=== PATIENT | female | born 1935 | race Caucasian/White ===

== ENCOUNTER 2021-12-05 08:25 | Observation (INO) ==
[2021-12-05 09:37] LABS: Basophils % 0.6 %; Eosinophils # 0.1 K/mcL (0.0-0.6); Eosinophils % 1.8 %; Hematocrit 26.9 % (35.3-44.9); Hemoglobin 7.9 g/dL (11.5-15.4); Immature Granulocytes % 0.8 % (0-4); Lymphocytes # 1.5 K/mcL (0.6-4.6); Lymphocytes % 20.4 %; Mean Corpuscular HGB Conc 29.4 g/dL (31.6-35.5); Mean Corpuscular Hemoglobin 30.9 pg (28.0-33.3); Mean Corpuscular Volume 105.1 fL (83.0-100.0); Mean Platelet Volume 9.9 fL (9.4-12.4); Monocytes # 0.7 K/mcL (0.0-1.3); Monocytes % 10.1 %; Neutrophils # 4.8 K/mcL (1.6-8.9); Platelet Count 304 K/mcL (140-400); Red Blood Count 2.56 M/mcL (3.82-4.97); Red Cell Distribution Width 18.9 % (11.5-14.5); Segmented Neutrophils % 66.3 %; White Blood Count 7.2 K/mcL (4.3-11.1)
[2021-12-05 09:57] LABS: BUN/Creatinine Ratio 16 (6-26); Blood Urea Nitrogen 13 mg/dL (8-23); Calcium 9.1 mg/dL (8.6-10.3); Carbon Dioxide 28 mEq/L (23-29); Chloride 103 mEq/L (98-107); Glucose 97 mg/dL (70-105); Osmolality,Calculated 288 (280-300); Potassium 3.9 mEq/L (3.5-5.1); Sodium 139 mEq/L (136-145); Troponin I < 0.03 ng/mL (< 0.04)
[2021-12-05] MEDS ORDERED: Pantoprazole 40 MG VIAL IVP ONE (10:09)
[2021-12-05] MEDS ORDERED: Naloxone 0.4 MG/ML INJ IVP PRN (10:33)
[2021-12-05] MEDS ORDERED: MOM Conc 10 ML UD.LIQ PO PRN (10:33)
[2021-12-05] MEDS ORDERED: Ondansetron 4 MG/2 ML VIAL IVP PRN (10:33)
[2021-12-05] MEDS ORDERED: Mag Hydrox/Al Hydrox/Simeth 30 ML UDC PO PRN (10:33)
[2021-12-05] MEDS ORDERED: Acetaminophen 325 MG TABLET PO PRN (10:33)
[2021-12-05] MEDS: 0.9 % Sodium Chloride 1,000 ML IVC SCH (12:35)
[2021-12-05 15:54] LABS: % Iron Saturation 5 % (15-50); Iron 23 mcg/dL (50-170); Transferrin 322 mg/dL (203-362)
[2021-12-05 16:09] LABS: Ferritin 35 ng/mL (10-120)
[2021-12-05] MEDS: Pantoprazole 40 MG VIAL IVP SCH (16:51)
[2021-12-05 17:09] LABS: Folate 12.8 ng/mL (3.0-16.0)
[2021-12-05 21:15] LABS: Hematocrit 24.4 % (35.3-44.9); Hemoglobin 7.2 g/dL (11.5-15.4)
[2021-12-05 21:24] LABS: Hematocrit 25.6 % (35.3-44.9); Hemoglobin 7.5 g/dL (11.5-15.4)
[2021-12-06 02:54] LABS: Hematocrit 23.8 % (35.3-44.9); Mean Corpuscular HGB Conc 29.4 g/dL (31.6-35.5); Mean Corpuscular Hemoglobin 31.4 pg (28.0-33.3); Mean Corpuscular Volume 106.7 fL (83.0-100.0); Mean Platelet Volume 9.6 fL (9.4-12.4); Platelet Count 243 K/mcL (140-400); Red Blood Count 2.23 M/mcL (3.82-4.97); Red Cell Distribution Width 18.6 % (11.5-14.5); White Blood Count 7.4 K/mcL (4.3-11.1)
[2021-12-06 02:55] LABS: Hematocrit 23.9 % (35.3-44.9); Hemoglobin 6.9 g/dL (11.5-15.4)
[2021-12-06 03:13] LABS: Calcium 8.3 mg/dL (8.6-10.3); Potassium 3.7 mEq/L (3.5-5.1)
[2021-12-06] MEDS: Pantoprazole 40 MG VIAL IVP SCH ×2 (05:33→16:40)
[2021-12-06] MEDS: 0.9 % Sodium Chloride 1,000 ML IVC SCH (08:37)
[2021-12-06] MEDS: Cyanocobalamin (B-12) 1,000 MCG TABLET PO SCH (11:38)
[2021-12-06] MEDS: Benzonatate 100 MG CAPSULE PO PRN (16:40)
[2021-12-06] MEDS ORDERED: 0.9 % Sodium Chloride 250 ML ONE (20:59)
[2021-12-06] MEDS: Gabapentin 300 MG CAPSULE PO PRN (21:05)
[2021-12-06] MEDS: Amoxicillin 500 MG CAPSULE PO SCH (21:19)
[2021-12-07] MEDS: Benzonatate 100 MG CAPSULE PO PRN (03:08)
[2021-12-07] MEDS: Levalbuterol Neb 1.25 MG/3 ML IH SCH ×2 (05:28→09:16)
[2021-12-07] MEDS: Pantoprazole 40 MG VIAL IVP SCH (05:40)
[2021-12-07] MEDS ORDERED: Azithromycin 500 MG in 0.9 % Sodium Chloride 250 ML IVPB SCH (06:00)
[2021-12-07] MEDS: Amoxicillin 500 MG CAPSULE PO SCH (08:08)
[2021-12-07] MEDS: Cyanocobalamin (B-12) 1,000 MCG TABLET PO SCH (08:08)
[2021-12-07] MEDS: Gabapentin 300 MG CAPSULE PO PRN (08:12)
[2021-12-07] MEDS ORDERED: Furosemide 20 MG TABLET PO SCH (09:00)
[2021-12-07 09:59] LABS: Basophils # 0.1 K/mcL (0.0-0.2); Basophils % 0.6 %; Eosinophils # 0.3 K/mcL (0.0-0.6); Eosinophils % 2.8 %; Hematocrit 30.1 % (35.3-44.9); Immature Granulocytes % 0.6 % (0-4); Lymphocytes # 1.4 K/mcL (0.6-4.6); Mean Corpuscular HGB Conc 29.9 g/dL (31.6-35.5); Mean Corpuscular Hemoglobin 30.3 pg (28.0-33.3); Mean Corpuscular Volume 101.3 fL (83.0-100.0); Mean Platelet Volume 9.7 fL (9.4-12.4); Monocytes % 11.2 %; Neutrophils # 6.1 K/mcL (1.6-8.9); Platelet Count 253 K/mcL (140-400); Red Blood Count 2.97 M/mcL (3.82-4.97); Red Cell Distribution Width 18.7 % (11.5-14.5); Segmented Neutrophils % 68.8 %; White Blood Count 8.8 K/mcL (4.3-11.1)
[2021-12-07 11:17] VITALS: BP 111/64; PULSE 80; TEMP 98.7; O2SAT 92
== END 2021-12-07 13:15 | disposition home or self-care (01) ==
LOC: EMEROOARM 08:25 → 3BNU 08:25
PROVIDERS: ADMIT Internal Medicine; ATTEND Internal Medicine